=== PATIENT | female | born 1990 | race Two or more races ===

== ENCOUNTER 2020-03-09 18:14 | Emergency (ER) | payer OTHER ==
[~2020-03-09] VITALS: Ht 170.2 cm; Wt 68.0 kg
== END 2020-03-09 21:23 | disposition home or self-care (01) ==
LOC: ER 18:14
DX: R07.89 Other chest pain (principal); Z03.818 Encounter for observation for suspected exposure to other biological agents ruled out

== ENCOUNTER 2022-06-29 14:10 | Emergency (ER) | payer OTHER ==
[~2022-06-29] VITALS: Ht 170.2 cm; Wt 66.2 kg
[2022-06-29] MEDS ORDERED: CIPRO500 MG PO (18:02)
[2022-06-29] MEDS ORDERED: PEPCID AC20 MG PO (18:02)
== END 2022-06-29 18:32 | disposition home or self-care (01) ==
LOC: ER 14:10
DX: K29.70 Gastritis, unspecified, without bleeding (principal)

== ENCOUNTER 2022-06-30 01:17 | Inpatient (IN) | payer OTHER ==
[~2022-06-30] VITALS: Ht 170.2 cm; Wt 145.6 kg
[~2022-06-30 01:17] MED LIST: CIPRO500 MG PO; PEPCID AC20 MG PO
== END 2022-07-05 14:38 | disposition home or self-care (01) | DRG 330 ==
LOC: ER 01:17 → SEC-K 15:05 → SURH 15:05 → O/R 18:55 → SURH 19:27
PROVIDERS: Surgery; ADMIT Internal Medicine; ATTEND Internal Medicine
PROC: 0DTJ4ZZ Resection of Appendix, Percutaneous Endoscopic Approach (ICD-10-PCS; 2022-06-30)
PROC: BW21ZZZ Computerized Tomography (CT Scan) of Abdomen and Pelvis (ICD-10-PCS; 2022-06-30)
PROC: BW40ZZZ Ultrasonography of Abdomen (ICD-10-PCS; 2022-06-30)
PROC: 0DQH4ZZ Repair Cecum, Percutaneous Endoscopic Approach (ICD-10-PCS; principal; 2022-06-30 18:45)
DX: K35.32 Acute appendicitis with perforation, localized peritonitis, and gangrene, without abscess (principal); K91.71 Accidental puncture and laceration of a digestive system organ or structure during a digestive system procedure; D72.828 Other elevated white blood cell count

== ENCOUNTER 2023-03-14 13:30 | Inpatient (IN) | payer OTHER ==
[~2023-03-14] VITALS: Ht 170.2 cm; Wt 81.6 kg
[2023-03-19] MEDS ORDERED: PRENATAL CAPLE1 EAC1 PO (19:49)
[2023-03-19 21:25] LABS: HEMATOCRIT 37.5 % (36.0-45.00); HEMOGLOBIN 12.5 g/dL (12.0-15.00); MEAN CORPUSCULAR HGB CONC 33.4 g/dl (32.0-36.0); PLATELET COUNT 219 K/uL (150-450); RED BLOOD COUNT 4.31 M/uL (4.00-6.00); RED CELL DISTRIBUTION WIDTH 13.7 % (11.5-14.5)
[2023-03-19 21:49] LABS: INR < 0.93; PARTIAL THROMBOPLASTIN TIME 25.6 SECONDS (22.0-34.0); PROTHROMBIN TIME 9.3 SECONDS (9.0-11.5)
== END 2023-03-22 17:16 | disposition home or self-care (01) | DRG 768 ==
LOC: OB/GYN 03-19 20:20 → LDR 03-19 20:20 → OB/GYN 03-20 16:56
PROVIDERS: Obstetrics & Gynecology; ADMIT Obstetrics & Gynecology; ATTEND Obstetrics & Gynecology
PROC: 4A1HXCZ Monitoring of Products of Conception, Cardiac Rate, External Approach (ICD-10-PCS; 2023-03-19)
PROC: 10D07Z6 Extraction of Products of Conception, Vacuum, Via Natural or Artificial Opening (ICD-10-PCS; principal; 2023-03-20)
PROC: 0DQR0ZZ Repair Anal Sphincter, Open Approach (ICD-10-PCS; 2023-03-20)
PROC: 0W8NXZZ Division of Female Perineum, External Approach (ICD-10-PCS; 2023-03-20)
DX: O70.21 Third degree perineal laceration during delivery, IIIa (principal); O66.5 Attempted application of vacuum extractor and forceps; Z37.0 Single live birth; Z3A.40 40 weeks gestation of pregnancy

== ENCOUNTER 2023-03-14 16:20 | Outpatient (CLI) | payer OTHER | END 2023-03-14 17:02 | disposition home or self-care (01) | LOC: NST 16:20 | PROVIDERS: ATTEND Obstetrics & Gynecology Maternal & Fetal Medicine | DX: Z34.83 Encounter for supervision of other normal pregnancy, third trimester (principal) ==

== ENCOUNTER → 2023-03-19 | Outpatient (CLI) | payer OTHER ==
[~2023-03-19] MED LIST changes: +PRENATAL CAPLE1 EAC1 PO
== END | disposition still patient (30) ==
LOC: OBS/DEL 18:52
PROVIDERS: ATTEND Obstetrics & Gynecology
DX: O26.893 Other specified pregnancy related conditions, third trimester (principal); Z3A.39 39 weeks gestation of pregnancy

== ENCOUNTER 2023-11-17 11:33 | Emergency (ER) | payer OTHER ==
[~2023-11-17] VITALS: Ht 170.2 cm; Wt 63.5 kg
[2023-11-17] MEDS ORDERED: ORPHENADRINE CITRATE 30 MG/ML AMPUL IM ONE (11:45)
[2023-11-17] MEDS ORDERED: KETOROLAC TROMETHAMINE 60 MG VIAL IM ONE (11:45)
[2023-11-17] MEDS ORDERED: DICLOFENAC SODI75 MG PO (12:33)
[2023-11-17] MEDS ORDERED: NORFLEX100MG PO (12:33)
== END 2023-11-17 14:03 | disposition home or self-care (01) ==
LOC: ER 11:34
DX: S19.89XA Other specified injuries of other specified part of neck, initial encounter (principal); T07.XXXA Unspecified multiple injuries, initial encounter; V49.88XA Car occupant (driver) (passenger) injured in other specified transport accidents, initial encounter; Y93.89 Activity, other specified; Y92.89 Other specified places as the place of occurrence of the external cause; Y99.8 Other external cause status